=== PATIENT | female | born 1995 | race Caucasian/White ===

== ENCOUNTER 2021-04-07 12:22 | Outpatient (CLI) | payer OTHER ==
[~2021-04-07 12:22] MED LIST: PYRIDIUM100 MG PO; SULFAMETHOXAZOL1 TA6 PO
== END 2021-04-07 12:33 | disposition home or self-care (01) ==
LOC: RAD 12:22
PROVIDERS: ATTEND Physical Medicine & Rehabilitation
DX: M54.5 Low back pain (principal); M79.672 Pain in left foot

== ENCOUNTER 2022-12-14 13:12 | Outpatient (CLI) | payer OTHER | END 2022-12-14 13:18 | disposition home or self-care (01) | LOC: SONOGRAMA 13:12 | PROVIDERS: ATTEND Obstetrics & Gynecology | DX: R10.2 Pelvic and perineal pain (principal) ==